=== PATIENT | male | born 1960 | race Caucasian/White ===

== ENCOUNTER → 2017-11-16 | Outpatient (CLI) | payer OTHER | LOC: CIMAGING 10:13 | PROVIDERS: ATTEND Urology | DX: N20.2 Calculus of kidney with calculus of ureter (principal); N28.9 Disorder of kidney and ureter, unspecified; N42.9 Disorder of prostate, unspecified; K57.90 Diverticulosis of intestine, part unspecified, without perforation or abscess without bleeding | CPT/HCPCS: 74176-PO ==

== ENCOUNTER → 2017-12-11 | Outpatient (CLI) | payer OTHER | LOC: CIMAGING 16:37 | PROVIDERS: ATTEND Urology | DX: Z96.0 Presence of urogenital implants (principal) | CPT/HCPCS: 74018-PO ==

== ENCOUNTER → 2018-02-19 | Outpatient (CLI) | payer OTHER | LOC: CIMAGING 12:27 | PROVIDERS: ATTEND Urology | DX: N13.30 Unspecified hydronephrosis (principal) | CPT/HCPCS: 76770-PO ==

== ENCOUNTER → 2018-03-07 | Outpatient (CLI) | payer OTHER ==
[~2018-03-07] MED LIST: IOPAMIDOL (ISOVUE-300) 100 ML BTL ONE
== END ==
LOC: CIMAGING 09:27
PROVIDERS: ATTEND Urology
DX: N13.30 Unspecified hydronephrosis (principal); N40.0 Benign prostatic hyperplasia without lower urinary tract symptoms; K57.30 Diverticulosis of large intestine without perforation or abscess without bleeding
CPT/HCPCS: 74178-PO; Q9967

== ENCOUNTER 2019-03-03 14:27 | Outpatient (CLI) | payer OTHER | END 2019-03-04 | LOC: EMCIMAGING 14:27 ==